=== PATIENT | female | born 1950 | race Caucasian/White ===

== ENCOUNTER 2023-09-11 01:21 | Inpatient (IN) | payer MEDICARE, MEDICAID ==
[2023-09-11] VITALS (13 sets, daily range): BP systolic 87–140; BP diastolic 50–80; TEMP 97–97.5; O2SAT 95–100
[~2023-09-11] VITALS: Ht 152.4 cm; Wt 42.5 kg
[2023-09-11] MEDS ORDERED: LORazepam 2 MG/ML 1ML VIAL IV STA (02:23)
[2023-09-11 03:52] LABS: ETHYL ALCOHOL (ETHANOL) < 0.003 % (0.000-0.010)
[2023-09-11 03:54] LABS: BASO % 0.1 % (0.0-1.0); EOS % 0.1 % (0.0-3.0); HEMATOCRIT 31.7 % (36.0-47.0); HEMOGLOBIN 11.7 g/dl (12.0-15.5); LYMPH # 1.5 10^3/uL (1.5-5.0); MEAN CORPUSCULAR HEMOGLOBIN 31.4 pg (27.0-33.0); MEAN CORPUSCULAR HGB CONC 36.9 g/dl (32.0-36.5); MONO # 0.4 10^3/uL (0.0-0.8); NEUTROPHILS # 5.2 10^3/uL (1.5-8.5); NEUTROPHILS % 72.5 % (36.0-66.0); PLATELET COUNT, AUTOMATED 157 10^3/uL (150-450); RED BLOOD COUNT 3.73 10^6/uL (4.00-5.40); SALICYLATE LEVEL < 3.0 MG/DL (<30); WHITE BLOOD COUNT 7.2 10^3/uL (4.0-10.0)
[2023-09-11 03:59] LABS: ALBUMIN 2.9 G/DL (3.2-5.2); ALKALINE PHOSPHATASE 195 U/L (46-116); ALT/SGPT 43 U/L (7.0-40); AST/SGOT 72 U/L (<34); BILIRUBIN,DIRECT 0.6 MG/DL (<0.4); BILIRUBIN,TOTAL 1.4 MG/DL (0.3-1.2); BLOOD UREA NITROGEN 25 MG/DL (9-23); CALCIUM LEVEL 7.5 MG/DL (8.3-10.6); CARBON DIOXIDE LEVEL 24 MMOL/L (20-31); CHLORIDE LEVEL 102 MMOL/L (98-107); CK-MB VALUE MASS 3.7 NG/ML (<3.6); CPK CREATINE PHOSPHOKINASE 167 U/L (34-145); CREATININE FOR GFR 1.09 MG/DL (0.55-1.30); GLOMERULAR FILTRATION RATE 52.7 (>39); GLUCOSE, FASTING 88 MG/DL (74-106); MB/CK RELATIVE INDEX 2.21 (< OR =4); POTASSIUM SERUM 3.9 MMOL/L (3.5-5.1); SODIUM LEVEL 135 MMOL/L (136-145); THYROID STIMULATING HORMONE 2.712 uIU/ML (0.55-4.78); TOTAL PROTEIN 5.4 G/DL (5.7-8.2)
[2023-09-11 04:01] LABS: AMPHETAMINES LEVEL URINE NEGATIVE (NEGATIVE); BARBITURATES URINE NEGATIVE (NEGATIVE); BENZODIAZEPINES URINE NEGATIVE (NEGATIVE); CANNABINOIDS URINE NEGATIVE (NEGATIVE); COCAINE METABOLITE URINE NEGATIVE (NEGATIVE); METHADONE URINE NEGATIVE (NEGATIVE); OPIATES URINE NEGATIVE (NEGATIVE); PHENCYCLIDINE URINE NEGATIVE (NEGATIVE)
[2023-09-11] MEDS ORDERED: ISOVUE-370 76% 100ML VIAL As Ordered ONE (04:04)
[2023-09-11] MEDS ORDERED: METOPROLOL TART 25 MG TABLET PO ONE (05:00)
[2023-09-11] MEDS: METOPROLOL 5 MG/5 ML VIAL IV SCH ×3 (05:05→10:26)
[2023-09-11 05:20] LABS: CK-MB VALUE MASS 2.8 NG/ML (<3.6)
[2023-09-11 05:21] LABS: MB/CK RELATIVE INDEX 2.82 (< OR =4)
[2023-09-11] MEDS ORDERED: DIGOXIN INJ 0.5 MG/2 ML AMP IV ONE (05:45)
[2023-09-11] MEDS ORDERED: PIPERACILLIN/TAZOBACTAM SOD 4.5 GM in D5W MINI-BAG PLUS 50 ML IV ONE (06:00)
[2023-09-11] MEDS ORDERED: dilTIAZem 25MG/5ML VIAL IV STA (06:25)
[2023-09-11] MEDS ORDERED: MED REC IN PROGRESS XX SCH (09:00)
[2023-09-11] MEDS ORDERED: SERTRALINE 100 MG TAB PO SCH (09:00)
[2023-09-11] MEDS ORDERED: CLOPIDOGREL 75 MG TAB PO SCH (09:00)
[2023-09-11] MEDS ORDERED: MED REC CURRENTLY UNOBTAINABLE XX SCH (09:30)
[2023-09-11] MEDS ORDERED: ZOLO100T PO (09:59)
[2023-09-11] MEDS ORDERED: MEMA10TA19 PO (09:59)
[2023-09-11] MEDS ORDERED: GABA-1171 PO (09:59)
[2023-09-11] MEDS ORDERED: CLOP75TA2 PO (09:59)
[2023-09-11] MEDS ORDERED: HOME MED LIST COMPLETE! XX SCH ×2 (10:00→11:00)
[2023-09-11] MEDS ORDERED: LR 1,000 ML IV SCH (10:00)
[2023-09-11] MEDS: METOPROLOL TART 12.5 MG PER 1/2 TAB PO SCH ×2 (10:27→20:12)
[2023-09-11] MEDS ORDERED: QUET100T2 PO (10:55)
[2023-09-11] MEDS ORDERED: TRAZ-257 PO (10:55)
[2023-09-11] MEDS: CEFTAROLINE FOSAMIL 400 MG in D5W MINI-BAG PLUS 50 ML IV SCH ×2 (11:00→22:37)
[2023-09-11] MEDS ORDERED: GLUCAGON INJ 1MG VIAL SC PRN (11:25)
[2023-09-11] MEDS ORDERED: GLUCOSE 4GM CHEW TABLET PO PRN (11:25)
[2023-09-11] MEDS ORDERED: DEXTROSE 50% 50ML SYRINGE IV PRN (11:25)
[2023-09-11] MEDS: HEPARIN SOD (PORCINE) 5000UNITS/ML 1ML VIAL/SYRINGE SC SCH ×2 (14:24→22:37)
[2023-09-11] MEDS: D5W/0.45% SODIUM CHLORIDE 1,000 ML IV SCH (14:24)
[2023-09-11] MEDS ORDERED: LR 1,000 ML IV ONE (15:30)
[2023-09-11 17:45] LABS: PROCALCITONIN 0.08 ng/ml
[2023-09-11] MEDS: levETIRAcetam INJection 750 MG in D5W 100 ML IV SCH (17:59)
[2023-09-11] MEDS: MEMANTINE 5MG TABLET (NAMENDA) PO SCH (20:52)
[2023-09-11] MEDS: GABAPENTIN 100 MG CAP PO SCH (20:53)
[2023-09-11] MEDS ORDERED: QUEtiapine FUMARATE 200 MG TAB PO SCH (21:00)
[2023-09-11] MEDS ORDERED: traZODone 100 MG TAB PO SCH (21:00)
[2023-09-12] VITALS: BP 148/67; TEMP 97.3; O2SAT 99
[2023-09-12] MEDS ORDERED: NS 500 ML IV ONE ×2 (01:15→02:30)
[2023-09-12] MEDS ORDERED: MORPHINE 2 MG/ML 1ML VIAL IV ONE (02:50)
[2023-09-12] MEDS: D5W/0.45% SODIUM CHLORIDE 1,000 ML IV SCH (03:39)
[2023-09-12] MEDS ORDERED: DIGOXIN INJ 0.5 MG/2 ML AMP IV ONE ×2 (03:40→09:30)
[2023-09-12 03:45] VITALS: BP 104/81; O2SAT 99
[2023-09-12 04:01] VITALS: BP 101/61; TEMP 97.5; O2SAT 99
[2023-09-12 04:17] VITALS: BP 98/71; O2SAT 99
[2023-09-12] MEDS: HEPARIN SOD (PORCINE) 5000UNITS/ML 1ML VIAL/SYRINGE SC SCH (05:15)
[2023-09-12] MEDS: levETIRAcetam INJection 750 MG in D5W 100 ML IV SCH (05:15)
[2023-09-12 06:16] LABS: BASO % 0.3 % (0.0-1.0); EOS % 0.4 % (0.0-3.0); HEMATOCRIT 31.5 % (36.0-47.0); HEMOGLOBIN 11.6 g/dl (12.0-15.5); LYMPH # 1.7 10^3/uL (1.5-5.0); LYMPH % 23.5 % (24.0-44.0); MEAN CORPUSCULAR HEMOGLOBIN 31.8 pg (27.0-33.0); MEAN CORPUSCULAR HGB CONC 36.8 g/dl (32.0-36.5); MEAN CORPUSCULAR VOLUME 86.3 fl (80.0-96.0); MONO # 0.4 10^3/uL (0.0-0.8); MONO % 5.1 % (2.0-8.0); NEUTROPHILS % 70.6 % (36.0-66.0); PLATELET COUNT, AUTOMATED 144 10^3/uL (150-450); RED BLOOD COUNT 3.65 10^6/uL (4.00-5.40); WHITE BLOOD COUNT 7.1 10^3/uL (4.0-10.0)
[2023-09-12 06:52] LABS: ALBUMIN 2.2 G/DL (3.2-5.2); ALKALINE PHOSPHATASE 185 U/L (46-116); ALT/SGPT 37 U/L (7.0-40); AST/SGOT 51 U/L (<34); BLOOD UREA NITROGEN 18 MG/DL (9-23); CARBON DIOXIDE LEVEL 26 MMOL/L (20-31); CHLORIDE LEVEL 103 MMOL/L (98-107); CREATININE FOR GFR 0.92 MG/DL (0.55-1.30); GLOMERULAR FILTRATION RATE > 60.0 (>39); GLUCOSE, FASTING 171 MG/DL (74-106); MAGNESIUM LEVEL 1.7 MG/DL (1.8-2.4); PHOSPHORUS LEVEL 2.5 MG/DL (2.4-5.1); POTASSIUM SERUM 2.8 MMOL/L (3.5-5.1); SODIUM LEVEL 135 MMOL/L (136-145); TOTAL PROTEIN 4.4 G/DL (5.7-8.2)
[2023-09-12] MEDS: MAG SULF 1GM/100ML (MAG RUN) 1 GM in IV 1 EA IV SCH ×2 (07:58→09:43)
[2023-09-12 08:00] VITALS: BP 128/82; TEMP 97.5; O2SAT 98
[2023-09-12] MEDS: MEMANTINE 5MG TABLET (NAMENDA) PO SCH (09:00)
[2023-09-12] MEDS: GABAPENTIN 100 MG CAP PO SCH (09:00)
[2023-09-12] MEDS: KCL 10MEQ/100ML SWI (KRUN) 10 MEQ in IV 1 EA IV SCH ×3 (10:18→14:00)
[2023-09-12] MEDS: CEFTAROLINE FOSAMIL 400 MG in D5W MINI-BAG PLUS 50 ML IV SCH (11:00)
[2023-09-12] MEDS ORDERED: MORPHINE 2 MG/ML 1ML VIAL IV PRN (12:30)
[2023-09-12] MEDS ORDERED: LORazepam 2 MG/ML 1ML VIAL IV PRN (12:30)
[2023-09-12] MEDS ORDERED: HYOSCYAMINE SULFATE 0.125 MG SUBL TABLET PO PRN (12:30)
[2023-09-12] MEDS ORDERED: ATIV1TAB10 PO (12:36)
[2023-09-12] MEDS ORDERED: MORP1SOL5 PO (12:36)
[2023-09-12] MEDS ORDERED: HYOS125TA PO ×2 (12:36→12:38)
[2023-09-12 13:20] LABS: BLOOD UREA NITROGEN 18 MG/DL (9-23); CALCIUM LEVEL 7.6 MG/DL (8.3-10.6); CARBON DIOXIDE LEVEL 24 MMOL/L (20-31); CHLORIDE LEVEL 105 MMOL/L (98-107); CREATININE FOR GFR 0.93 MG/DL (0.55-1.30); GLOMERULAR FILTRATION RATE > 60.0 (>39); GLUCOSE, FASTING 101 MG/DL (74-106); MAGNESIUM LEVEL 2.4 MG/DL (1.8-2.4); POTASSIUM SERUM 3.5 MMOL/L (3.5-5.1); SODIUM LEVEL 137 MMOL/L (136-145)
[2023-09-12] MEDS ORDERED: ENOXAPARIN 40MG/0.4ML SYRINGE (J1650 PER 10MG) SC SCH (21:00)
== END 2023-09-12 15:43 | disposition hospice, home (50) | DRG 308 ==
LOC: EDBD 01:21 → M ED 01:21 → M ED INP 07:59 → ENRESERV 08:20 → M ICU 09:30
PROVIDERS: ADMIT Internal Medicine; ATTEND Internal Medicine
DX: I48.91 Unspecified atrial fibrillation (principal); G93.41 Metabolic encephalopathy; L03.115 Cellulitis of right lower limb; E46 Unspecified protein-calorie malnutrition; Z68.1 Body mass index [BMI] 19.9 or less, adult; L89.159 Pressure ulcer of sacral region, unspecified stage; L89.519 Pressure ulcer of right ankle, unspecified stage; B96.20 Unspecified Escherichia coli [E. coli] as the cause of diseases classified elsewhere; F03.90 Unspecified dementia, unspecified severity, without behavioral disturbance, psychotic disturbance, mood disturbance, and anxiety; Z66 Do not resuscitate; G40.909 Epilepsy, unspecified, not intractable, without status epilepticus; E78.5 Hyperlipidemia, unspecified; G47.00 Insomnia, unspecified; G89.29 Other chronic pain; R82.81 Pyuria; Z98.84 Bariatric surgery status; L89.212 Pressure ulcer of right hip, stage 2; R74.01 Elevation of levels of liver transaminase levels; R62.7 Adult failure to thrive; Z79.899 Other long term (current) drug therapy; Z20.822 Contact with and (suspected) exposure to COVID-19